=== PATIENT | male | born 1955 | race Two or more races ===

== ENCOUNTER 2023-08-29 14:44 | Inpatient (IN) | payer MEDICAID ==
[~2023-08-29] VITALS: Ht 167.6 cm; Wt 98.2 kg
[~2023-08-29 14:44] MED LIST: APIX5TAB PO
[2023-08-29] MEDS: ONDANSETRON HCL 4 MG/2 ML VIAL IV ONE (15:50)
[2023-08-29 15:55] LABS: Basophils # (auto) 0 10 ^3/uL (0-0.2); Basophils % (auto) 0.2 % (0.0-2.0); Eosinophils # (auto) 0 10 ^3/uL (0-0.8); Hematocrit 46.6 % (41.0-53.0); Hemoglobin 15.6 g/dL (13.5-17.5); Lymphocytes # (auto) 2.5 10 ^3/uL (0.4-5.4); Lymphocytes % (auto) 21.6 % (10.0-50.0); Mean Corpuscular Hemoglobin 29.9 pg (28.0-32.0); Mean Corpuscular Hgb Conc. 33.4 g/dL (32.0-36.0); Mean Corpuscular Volume 89.6 fL (80.0-100.0); Monocytes # (auto) 0.7 10 ^3/uL (0-1.3); Monocytes % (auto) 6.1 % (0.0-12.0); Neutrophils # (auto) 8.5 10 ^3/uL (1.6-8.6); Neutrophils % (auto) 72.1 % (37.0-80.0); Nucleated Red Blood Cells % 0.1 %; Red Cell Distribution Width 13.4 % (11.8-14.3); White Blood Cell 11.8 10^3/uL (4.4-10.8)
[2023-08-29] MEDS: ONDANSETRON HCL 4 MG/2 ML VIAL ONE (16:08)
[2023-08-29 16:16] LABS: Alanine Aminotransferase 20 U/L (7-40); Albumin 4.3 g/dL (3.2-4.8); Alkaline Phosphatase 84 U/L (46-116); Anion Gap 10 (5-15); Aspartate Aminotransferase 16 U/L (13-40); BUN/Creatinine Ratio 20.7 (10.0-20.0); Bilirubin, Total 0.6 mg/dL (0.2-1.0); Blood Urea Nitrogen 18 mg/dL (9-23); Calcium 9.2 mg/dL (8.7-10.4); Carbon Dioxide 24 mmol/L (20-30); Chloride 101 mmol/L (98-107); Glucose 361 mg/dL (74-106); Potassium 3.9 mmol/L (3.5-5.1); Sodium 135 mmol/L (136-145); Total Protein 6.8 g/dL (5.7-8.2)
[2023-08-29] MEDS: SODIUM CHLORIDE 0.9% 1,000 ML IV ONE (16:36)
[2023-08-29] MEDS: ASPirin 81 mg TAB PO ONE (17:07)
[2023-08-29] MEDS: MORPHINE SULFATE INJ 2 MG/ml SYRG IV ONE (17:10)
[2023-08-29] MEDS: PROCHLORPERAZINE EDISYLATE 5 MG/ML 2ML VIAL IV ONE (17:10)
[2023-08-29] MEDS ORDERED: MORPHINE SULFATE INJ 2 MG/ml SYRG IV PRN (17:45)
[2023-08-29] MEDS ORDERED: ONDANSETRON HCL 4 MG/2 ML VIAL IV PRN (17:45)
[2023-08-29] MEDS ORDERED: NITROGLYCERIN 0.4 MG SL TAB SL PRN (17:45)
[2023-08-29] MEDS: SODIUM CHLORIDE 0.9% 1,000 ML IV SCH (18:50)
[2023-08-29] MEDS: LISINOPRIL 5 MG TAB PO ONE (18:51)
[2023-08-29 19:22] LABS: Blood Alcohol 4.2 mg/dL (<10)
[2023-08-30] MEDS: APIXABAN 5 MG TAB PO SCH (00:58)
[2023-08-30] MEDS: MECLIZINE HCL 25 MG TAB PO PRN (00:59)
[2023-08-30 01:00] VITALS: PULSE 76; RESP 13; O2SAT 97
[2023-08-30 01:50] LABS: Rapid Influenza A Negative (Negative); Rapid Influenza B Negative (Negative)
[2023-08-30 01:51] LABS: COVID19 ANTIGEN SOFIA FIA NEGATIVE (NEGATIVE)
[2023-08-30] MEDS: TEMAZEPAM 15 MG CAP PO ONE (02:57)
[2023-08-30] MEDS: ACETAMINOPHEN 325 MG TAB PO PRN (03:05)
[2023-08-30 03:10] LABS: Urine WBC None Seen /hpf (0 - 3)
[2023-08-30 03:40] LABS: Amphetamine Screen, Urine Neg (NEGATIVE); Barbiturate Scree,Urine Neg (NEGATIVE); Benzodiazephine Screen, Urine Neg (NEGATIVE); Cannabinoid Screen, Urine Neg (NEGATIVE); Cocaine Screen, Urine Neg (NEGATIVE); Opiate Scree,Urine Neg (NEGATIVE); Phencyclidine Screen, Urine Neg (NEGATIVE)
[2023-08-30 04:02] LABS: Urine Bacteria NONE SEEN /hpf (None Seen); Urine Blood Negative /uL (Negative); Urine Clarity Clear (Clear); Urine Color Yellow (Yellow); Urine Protein, UAD Negative (Negative); Urine Specific Gravity 1.036 (1.001-1.035); Urine Urobilinogen Normal (Negative); Urine pH 5.5 (5.0-8.0)
[2023-08-30 06:23] LABS: Basophils # (auto) 0 10 ^3/uL (0-0.2); Basophils % (auto) 0.2 % (0.0-2.0); Eosinophils # (auto) 0 10 ^3/uL (0-0.8); Hematocrit 45.1 % (41.0-53.0); Hemoglobin 15.5 g/dL (13.5-17.5); Lymphocytes # (auto) 0.9 10 ^3/uL (0.4-5.4); Lymphocytes % (auto) 9.4 % (10.0-50.0); Mean Corpuscular Hemoglobin 30.6 pg (28.0-32.0); Mean Corpuscular Hgb Conc. 34.5 g/dL (32.0-36.0); Mean Corpuscular Volume 88.8 fL (80.0-100.0); Monocytes # (auto) 0.7 10 ^3/uL (0-1.3); Monocytes % (auto) 6.6 % (0.0-12.0); Neutrophils # (auto) 8.3 10 ^3/uL (1.6-8.6); Neutrophils % (auto) 83.8 % (37.0-80.0); Nucleated Red Blood Cells % 0.1 %; Red Blood Cells 5.08 10^6/uL (4.5-5.90); Red Cell Distribution Width 13.4 % (11.8-14.3); White Blood Cell 9.9 10^3/uL (4.4-10.8)
[2023-08-30 06:36] LABS: Alanine Aminotransferase 18 U/L (7-40); Albumin 4.3 g/dL (3.2-4.8); Alkaline Phosphatase 81 U/L (46-116); Anion Gap 8 (5-15); Aspartate Aminotransferase 16 U/L (13-40); Bilirubin, Total 0.4 mg/dL (0.2-1.0); Blood Urea Nitrogen 13 mg/dL (9-23); Carbon Dioxide 27 mmol/L (20-30); Chloride 102 mmol/L (98-107); Glucose 338 mg/dL (74-106); Potassium 4.1 mmol/L (3.5-5.1); Sodium 137 mmol/L (136-145); Total Protein 6.8 g/dL (5.7-8.2)
[2023-08-30 07:50] VITALS: PULSE 76; RESP 15; O2SAT 97
[2023-08-30] MEDS: OPTISON 3ml Vial for INJ IV ONE ×2 (09:16→09:30)
[2023-08-30] MEDS ORDERED: ENOXAPARIN SOD 40 MG/0.4 ML SYRINGE SC SCH (10:00)
[2023-08-30] MEDS: LISINOPRIL 5 MG TAB PO SCH (10:58)
[2023-08-30] MEDS: ASPirin 81 mg TAB PO SCH (10:59)
[2023-08-30] MEDS: PANTOPRAZOLE 40 MG/10 ML VIAL INJ IV ONE (12:06)
[2023-08-30] MEDS: DEXTROSE (50%) 50ML SYRG IV ONE (18:00)
[2023-08-30 19:35] VITALS: PULSE 91; RESP 14; O2SAT 94
[2023-08-30] MEDS ORDERED: DEXTROSE (50%) 50ML SYRG IV SCH (20:45)
[2023-08-30] MEDS: ATORVASTATIN 20 MG TAB PO SCH (21:43)
[2023-08-30] MEDS: PANTOPRAZOLE 40 MG/10 ML VIAL INJ IV SCH (21:43)
[2023-08-30] MEDS: InsuLIN REG 1unit/0.01ml Soln (100units/ml) SC ONE (21:44)
[2023-08-30] MEDS: ACCU-CHEK COMFORT CURVE STRIP VI ONE (21:44)
[2023-08-30 21:50] VITALS: O2SAT 96
[2023-08-30 22:49] VITALS: BP 141/73; PULSE 88; RESP 14; TEMP 99.3; O2SAT 94
[2023-08-30 22:56] VITALS: BP 141/71; PULSE 89; RESP 18; TEMP 98.1; O2SAT 92
[2023-08-31] VITALS (9 sets, daily range): BP systolic 138–157; BP diastolic 64–90; PULSE 71–89; RESP 18–20; TEMP 97.4–98.2; O2SAT 92–97
[2023-08-31] MEDS: INSULIN LANTUS (GLARGINE) 1 /0.01ml (100units/ml) SC SCH (06:39)
[2023-08-31 06:41] LABS: Basophils # (auto) 0.1 10 ^3/uL (0-0.2); Basophils % (auto) 0.6 % (0.0-2.0); Eosinophils # (auto) 0 10 ^3/uL (0-0.8); Eosinophils % (auto) 0.4 % (0.0-7.0); Hematocrit 42.6 % (41.0-53.0); Hemoglobin 14.4 g/dL (13.5-17.5); Lymphocytes # (auto) 2.1 10 ^3/uL (0.4-5.4); Lymphocytes % (auto) 22.2 % (10.0-50.0); Mean Corpuscular Hemoglobin 30.3 pg (28.0-32.0); Mean Corpuscular Hgb Conc. 33.7 g/dL (32.0-36.0); Mean Corpuscular Volume 89.8 fL (80.0-100.0); Monocytes # (auto) 0.9 10 ^3/uL (0-1.3); Monocytes % (auto) 9.3 % (0.0-12.0); Neutrophils # (auto) 6.4 10 ^3/uL (1.6-8.6); Neutrophils % (auto) 67.5 % (37.0-80.0); Nucleated Red Blood Cells % 0.1 %; Red Blood Cells 4.75 10^6/uL (4.5-5.90); Red Cell Distribution Width 13.7 % (11.8-14.3); White Blood Cell 9.5 10^3/uL (4.4-10.8)
[2023-08-31 06:51] LABS: Alanine Aminotransferase 17 U/L (7-40); Albumin 3.8 g/dL (3.2-4.8); Alkaline Phosphatase 74 U/L (46-116); Anion Gap 5 (5-15); Aspartate Aminotransferase 13 U/L (13-40); BUN/Creatinine Ratio 11.8 (10.0-20.0); Bilirubin, Total 0.5 mg/dL (0.2-1.0); Blood Urea Nitrogen 10 mg/dL (9-23); Calcium 8.9 mg/dL (8.7-10.4); Carbon Dioxide 26 mmol/L (20-30); Chloride 108 mmol/L (98-107); Glucose 268 mg/dL (74-106); Potassium 3.8 mmol/L (3.5-5.1); Sodium 139 mmol/L (136-145); Total Protein 6.2 g/dL (5.7-8.2)
[2023-08-31] MEDS ORDERED: DEXTROSE (50%) 50ML SYRG IV PRN (08:45)
[2023-08-31] MEDS: THIAMINE 100mg/ml INJ (200mg/2ml VIAL) IV SCH (09:23)
[2023-08-31] MEDS: FOLIC ACID 1 MG in D5W 5% 50 ML INJ SCH (09:24)
[2023-08-31] MEDS: chlorproMAZINE HCL 25 MG TAB PO PRN (09:24)
[2023-08-31] MEDS: ACCU-CHEK COMFORT CURVE STRIP VI SCH (11:39)
[2023-08-31] MEDS: InsuLIN REG 1unit/0.01ml Soln (100units/ml) SC SCH (11:42)
[2023-08-31] MEDS: MAGNESIUM SULFATE 1GM/100ML 100 ML IV ONE (17:39)
[2023-08-31] MEDS ORDERED: Glucerna 1.2 Cal 1Liter BOTTLE GT SCH (18:45)
[2023-08-31 20:35] LABS: Potassium 3.8 mmol/L (3.5-5.1)
[2023-08-31 20:42] LABS: Magnesium 2.1 mg/dL (1.6-2.6)
[2023-08-31] MEDS ORDERED: METOPROLOL TARTRATE 25 MG TAB PO SCH (22:00)
[2023-09-01] MEDS: ATORVASTATIN 20 MG TAB PO SCH (00:29)
[2023-09-01] MEDS: METOPROLOL TARTRATE 25 MG TAB PO SCH (00:30)
[2023-09-01 07:00] LABS: Alanine Aminotransferase 17 U/L (7-40); Alkaline Phosphatase 65 U/L (46-116); Calcium 9.1 mg/dL (8.7-10.4); Carbon Dioxide 27 mmol/L (20-30); Chloride 109 mmol/L (98-107)
[2023-09-01 07:01] LABS: Albumin 3.7 g/dL (3.2-4.8); Anion Gap 6 (5-15); Aspartate Aminotransferase 15 U/L (13-40); BUN/Creatinine Ratio 8.5 (10.0-20.0); Bilirubin, Total 0.8 mg/dL (0.2-1.0); Blood Urea Nitrogen 7 mg/dL (9-23); Magnesium 1.9 mg/dL (1.6-2.6); Phosphorus 3.8 mg/dL (2.4-5.1); Potassium 3.6 mmol/L (3.5-5.1); Sodium 142 mmol/L (136-145); Total Protein 6.2 g/dL (5.7-8.2)
[2023-09-01 07:02] LABS: Basophils # (auto) 0 10 ^3/uL (0-0.2); Basophils % (auto) 0.4 % (0.0-2.0); Eosinophils # (auto) 0 10 ^3/uL (0-0.8); Eosinophils % (auto) 0.6 % (0.0-7.0); Hematocrit 43.4 % (41.0-53.0); Hemoglobin 14.7 g/dL (13.5-17.5); Lymphocytes # (auto) 2.3 10 ^3/uL (0.4-5.4); Lymphocytes % (auto) 27.4 % (10.0-50.0); Mean Corpuscular Hemoglobin 30.6 pg (28.0-32.0); Mean Corpuscular Hgb Conc. 33.8 g/dL (32.0-36.0); Mean Corpuscular Volume 90.7 fL (80.0-100.0); Monocytes # (auto) 0.8 10 ^3/uL (0-1.3); Monocytes % (auto) 9.4 % (0.0-12.0); Neutrophils # (auto) 5.2 10 ^3/uL (1.6-8.6); Neutrophils % (auto) 62.2 % (37.0-80.0); Nucleated Red Blood Cells % 0.1 %; Red Blood Cells 4.78 10^6/uL (4.5-5.90); Red Cell Distribution Width 13.5 % (11.8-14.3); White Blood Cell 8.4 10^3/uL (4.4-10.8)
[2023-09-01 07:05] LABS: Glucose 138 mg/dL (74-106)
[2023-09-01 08:30] VITALS: PULSE 73
[2023-09-01 08:53] VITALS: BP 133/78; PULSE 65; RESP 17; TEMP 98; O2SAT 94
[2023-09-01] MEDS: MAGNESIUM OXIDE 400 MG TAB PO SCH (10:00)
[2023-09-01] MEDS: MAGNESIUM SULFATE 1GM/100ML 100 ML IV ONE (12:25)
[2023-09-01 12:52] VITALS: BP 130/85; PULSE 67; RESP 17; TEMP 97.8; O2SAT 96
[2023-09-01] MEDS: POTASSIUM CHL 20MEQ/100ML 100 ML IV ONE (13:49)
[2023-09-01] MEDS: BARIUM SULFATE 98% 340 GM PWDR ONE (15:50)
[2023-09-01 16:39] VITALS: BP 144/79; PULSE 64; RESP 16; TEMP 97.9; O2SAT 94
[2023-09-01 20:00] VITALS: PULSE 74
[2023-09-01 22:00] VITALS: BP 149/80; PULSE 72; RESP 17; TEMP 98.3; O2SAT 94
[2023-09-02] VITALS (7 sets, daily range): BP systolic 139–161; BP diastolic 78–90; PULSE 60–76; RESP 17–19; TEMP 97.6–98.3; O2SAT 91–94
[2023-09-02 05:35] LABS: Basophils # (auto) 0 10 ^3/uL (0-0.2); Basophils % (auto) 0.6 % (0.0-2.0); Eosinophils # (auto) 0 10 ^3/uL (0-0.8); Eosinophils % (auto) 0.5 % (0.0-7.0); Hematocrit 44.1 % (41.0-53.0); Lymphocytes # (auto) 2.2 10 ^3/uL (0.4-5.4); Lymphocytes % (auto) 25.9 % (10.0-50.0); Mean Corpuscular Hemoglobin 30.5 pg (28.0-32.0); Mean Corpuscular Hgb Conc. 34.1 g/dL (32.0-36.0); Mean Corpuscular Volume 89.4 fL (80.0-100.0); Monocytes # (auto) 0.7 10 ^3/uL (0-1.3); Monocytes % (auto) 8.8 % (0.0-12.0); Neutrophils # (auto) 5.4 10 ^3/uL (1.6-8.6); Neutrophils % (auto) 64.2 % (37.0-80.0); Red Blood Cells 4.93 10^6/uL (4.5-5.90); Red Cell Distribution Width 13.5 % (11.8-14.3); White Blood Cell 8.5 10^3/uL (4.4-10.8)
[2023-09-02 05:55] LABS: Alanine Aminotransferase 15 U/L (7-40); Albumin 3.9 g/dL (3.2-4.8); Alkaline Phosphatase 72 U/L (46-116); Anion Gap 7 (5-15); Aspartate Aminotransferase 14 U/L (13-40); BUN/Creatinine Ratio 9.5 (10.0-20.0); Bilirubin, Total 0.7 mg/dL (0.2-1.0); Blood Urea Nitrogen 9 mg/dL (9-23); Calcium 9.3 mg/dL (8.7-10.4); Carbon Dioxide 26 mmol/L (20-30); Chloride 108 mmol/L (98-107); Glucose 212 mg/dL (74-106); Magnesium 1.8 mg/dL (1.6-2.6); Potassium 3.7 mmol/L (3.5-5.1); Sodium 141 mmol/L (136-145); Total Protein 6.5 g/dL (5.7-8.2)
[2023-09-02] MEDS: LISINOPRIL 10 MG TAB PO ONE (17:27)
[2023-09-03] MEDS ORDERED: hydrALAZINE HCL 20 MG/ML VL IV SCH ×2 (00:30→12:45)
[2023-09-03] MEDS: hydrALAZINE HCL 20 MG/ML VL IV PRN (00:51)
[2023-09-03 05:00] VITALS: BP 156/84; PULSE 72; RESP 19; TEMP 98.1; O2SAT 94
[2023-09-03 07:42] LABS: Basophils # (auto) 0.1 10 ^3/uL (0-0.2); Basophils % (auto) 0.6 % (0.0-2.0); Eosinophils # (auto) 0 10 ^3/uL (0-0.8); Eosinophils % (auto) 0.1 % (0.0-7.0); Hematocrit 47.6 % (41.0-53.0); Lymphocytes # (auto) 1.8 10 ^3/uL (0.4-5.4); Lymphocytes % (auto) 19.5 % (10.0-50.0); Mean Corpuscular Hemoglobin 30.4 pg (28.0-32.0); Mean Corpuscular Hgb Conc. 33.7 g/dL (32.0-36.0); Mean Corpuscular Volume 90.2 fL (80.0-100.0); Monocytes # (auto) 0.7 10 ^3/uL (0-1.3); Monocytes % (auto) 7.7 % (0.0-12.0); Neutrophils # (auto) 6.8 10 ^3/uL (1.6-8.6); Neutrophils % (auto) 72.1 % (37.0-80.0); Red Blood Cells 5.27 10^6/uL (4.5-5.90); Red Cell Distribution Width 13.6 % (11.8-14.3); White Blood Cell 9.4 10^3/uL (4.4-10.8)
[2023-09-03 08:00] VITALS: PULSE 80; PULSE 91; RESP 18; O2SAT 93
[2023-09-03 08:03] LABS: Alanine Aminotransferase 16 U/L (7-40); Albumin 4.3 g/dL (3.2-4.8); Alkaline Phosphatase 76 U/L (46-116); Anion Gap 10 (5-15); Aspartate Aminotransferase 12 U/L (13-40); BUN/Creatinine Ratio 10.1 (10.0-20.0); Blood Urea Nitrogen 9 mg/dL (9-23); Calcium 9.9 mg/dL (8.7-10.4); Carbon Dioxide 28 mmol/L (20-30); Chloride 104 mmol/L (98-107); Glucose 233 mg/dL (74-106); Magnesium 1.8 mg/dL (1.6-2.6); Potassium 3.6 mmol/L (3.5-5.1); Sodium 142 mmol/L (136-145)
[2023-09-03 08:04] LABS: Bilirubin, Total 0.8 mg/dL (0.2-1.0)
[2023-09-03 09:00] VITALS: BP 172/70; PULSE 80; RESP 18; TEMP 97.9; O2SAT 93
[2023-09-03] MEDS: LISINOPRIL 20 MG TAB PO SCH (10:17)
[2023-09-03 13:00] VITALS: BP 125/89; PULSE 67; RESP 19; TEMP 97.8; O2SAT 94
[2023-09-03] MEDS ORDERED: ATOR80TA PO (13:42)
[2023-09-03] MEDS ORDERED: LISI20TA56 PO (13:42)
[2023-09-03] MEDS ORDERED: APIX5TAB PO (13:42)
[2023-09-03] MEDS ORDERED: METF-370 PO (13:44)
[2023-09-03 14:32] VITALS: BP 125/89; PULSE 67; RESP 19; TEMP 97.8; O2SAT 94
== END 2023-09-03 15:30 | disposition home or self-care (01) | DRG 45 ==
LOC: EDUNIT# 14:44 → ER 14:44 → EDBD 14:44 → TELE 17:45 → TELE-WESTW 08-30 22:39
PROVIDERS: ADMIT Internal Medicine Pulmonary Disease; ATTEND Internal Medicine Pulmonary Disease
DX: I63.9 Cerebral infarction, unspecified (principal); E11.65 Type 2 diabetes mellitus with hyperglycemia; R11.2 Nausea with vomiting, unspecified; R42 Dizziness and giddiness; I10 Essential (primary) hypertension; I25.10 Atherosclerotic heart disease of native coronary artery without angina pectoris; E78.5 Hyperlipidemia, unspecified; H93.19 Tinnitus, unspecified ear; I16.0 Hypertensive urgency; E66.01 Morbid (severe) obesity due to excess calories; G47.30 Sleep apnea, unspecified; R47.81 Slurred speech; Z20.822 Contact with and (suspected) exposure to COVID-19; R29.818 Other symptoms and signs involving the nervous system; R06.6 Hiccough; I49.3 Ventricular premature depolarization; R00.8 Other abnormalities of heart beat; R53.1 Weakness; I48.91 Unspecified atrial fibrillation; I25.2 Old myocardial infarction; Z95.1 Presence of aortocoronary bypass graft; Z68.34 Body mass index [BMI] 34.0-34.9, adult; Z91.148 Patient's other noncompliance with medication regimen for other reason; Z79.01 Long term (current) use of anticoagulants; Z79.82 Long term (current) use of aspirin; Z79.899 Other long term (current) drug therapy
CPT/HCPCS: 36415; 70450; 70551; 71045; 74176; 74230; 80053; 80061; 80307; 80320; 81001; 82962; 83036; 83735; 84100; 84132; 84443; 84484; 85025; 87426; 87804; 92610; 92611; 93005; 93306; 93886; 97110; 97116; 97163; 97530; 99291; C9113; G0378; J1815; J2405; J3480; J7060; Q0161; Q9956